=== PATIENT | female | born 1965 | race Caucasian/White ===

== ENCOUNTER 2019-10-20 16:21 | Outpatient (RCR) | payer OTHER, SELFPAY | END 2019-10-23 23:59 | disposition home or self-care (01) | LOC: SPT 16:21 | PROVIDERS: Family Provider Family Medicine; PCP Family Medicine; Referring Provider Nurse Practitioner Family; Visit Provider Nurse Practitioner Family | DX: M72.2 Plantar fascial fibromatosis (principal); M79.672 Pain in left foot; M79.671 Pain in right foot | CPT/HCPCS: 97161 ==